=== PATIENT | female | born 1960 | race Caucasian/White ===

== ENCOUNTER 2022-02-11 06:34 | Emergency (ER) | payer BC, SELFPAY ==
--- NOTE | ~2022-02-11 | XR_ITS ---
EXAMINATION: XR lumbar spine 2-3V DATE: 02/11/2022 09:17 INDICATION: Low back pain TECHNIQUE: Anteroposterior and lateral views of the lumbar spine, and cone-down lateral view of the l umbosacral junction were obtained. COMPARISON: None. FINDINGS: There is an age-indeterminate compression fracture of L1 with 20% loss of anterior vertebra l body height. The vertebral body heights are otherwise maintained. There are 3 mm of retrolisthesis of L5 on S1. There is mild loss of intervertebral disc space height at L1-2. There is mild facet join t osteoarthritis in the lower lumbar spine. Surgical clips in the right upper quadrant are likely fro m prior cholecystectomy. Calcified atherosclerosis is noted. IMPRESSION: 1. Age-indeterminate L1 compression fracture with 20% loss of anterior vertebral body height. Reviewed, dictated and finalized at location A. IMPRESSION: 1. Age-indeterminate L1 compression fracture with 20% loss of anterior vertebra l body height.
--- NOTE | ~2022-02-11 | CT_ITS ---
EXAMINATION: CT lumbar spine wo con DATE: 02/11/2022 10:05 INDICATION: L1 compression fracture. TECHNIQUE: Computed tomography (CT) of the lumbar spine was performed without intravenous contrast. A utomated exposure control and iterative reconstruction technique were employed. The dose-length produ ct was 1152.12 mGy-cm. COMPARISON: Lumbar spine radiographs 02/11/2022 FINDINGS: Bone alignment is normal. There is a compression fracture of T12 with 1/5 loss of height. T here is a compression fracture of L1 with 3/5 loss of height centrally and sclerosis of the vertebral body. There is a compression fracture of inferior endplate of L2 with 1/5 loss of height. There is a compression fracture of superior endplate of L5 with 1/5 loss of height. There is a fracture of S1 s uperior endplate with low signal fracture line and sclerosis without height loss. There is mildly dec reased disc height at L1-L2. The following disc levels are specifically discussed: L1-L2: The disc is bulging. There is mild bilateral facet joint osteoarthritis. There is mild bilater al neural foraminal stenosis. There is mild central canal stenosis. L2-L3: The disc does not extend beyond the endplate margin. There is moderate bilateral facet joint o steoarthritis. There is no neural foraminal stenosis. There is no central canal stenosis. L3-L4: The disc is bulging. There is moderate bilateral facet joint osteoarthritis. There is mild angelia ateral neural foraminal stenosis. There is mild central canal stenosis. L4-L5: The disc is bulging. There is severe right and moderate left facet joint osteoarthritis. There is mild bilateral neural foraminal stenosis. There is mild central canal stenosis. L5-S1: The disc does not extend beyond the endplate margin. There is moderate bilateral facet joint o steoarthritis. There is no neural foraminal stenosis. There is no central canal stenosis. IMPRESSION: 1. T12, L1, and S1 compression fractures, likely subacute. 2. Age indeterminant L2 and L5 compression fractures. 3. Mild lumbar spondylosis. Reviewed, dictated and finalized at location B.
--- NOTE | ~2022-02-11 | XR_ITS ---
EXAMINATION: XR thoracic spine 3V DATE: 02/11/2022 09:17 INDICATION: Thoracic back pain TECHNIQUE: AP, lateral and lateral swimmer's views of the thoracic spine were obtained. COMPARISON: None. FINDINGS: Bone alignment is normal. There is no fracture. The thoracic vertebral bodies are maintaine d. There is moderate loss of intervertebral disc space height at multiple levels in the thoracic spin e. Small degenerative osteophytes project from the anterior endplates of multiple vertebral bodies. A n age-indeterminate L1 compression fracture is noted. IMPRESSION: 1. Moderate thoracic spondylosis without acute findings of the thoracic spine. 2. Age-indeterminate L1 compression fracture. Reviewed, dictated and finalized at location A.
[2022-02-11 06:42] VITALS: BP 181/78; PULSE 65; RESP 18; TEMP 36.9; O2SAT 99
--- NOTE | 2022-02-11 07:35 | ED.BACK ---
HPI - Back Pain/Injury General Chief Complaint: Back Pain/Injury Stated Complaint: back pain x 1 month Time Seen by Provider: 02/11/22 07:33 Source: patient and family Limitations: no limitations History of Present Illness HPI Narrative: 61 years old white female presents with mid line lumbar back pain started 1 month ago. Patient moved from [place] to [place] recently with a lot of lifting and moving furniture at that time subsequently patient started having that pain. Was seen by her family physician in [place] and started on prednisone and muscle relaxant no improvement, then was seen by her family physician in [place] which started her on muscle relaxant and prednisone again, last prednisone was yesterday, yesterday patient had the first physical therapy which did not tolerate. Patient denies any fever, chills, nausea, vomiting, abdominal pain, chest pain, shortness of breath, radiation of pain, focal neurodeficit . patient denies bowel dysfunction, bladder dysfunction, altered sensation, focal weakness, or saddle numbness, Related Data Allergies Allergy/AdvReac Type Severity Reaction Status Date / Time No Known Allergies Allergy Verified 02/11/22 08:57 Review of Systems Review of Systems: All systems reviewed & are unremarkable except as noted in HPI and below Exam Narrative: General appearance: Well-developed, well-nourished Skin: Normal color Head: Normocephalic, nontraumatic Eyes: Clear conjunctiva ENT: Oropharynx normal, ears normal, nose normal Neck: Supple, nontender Chest and respiratory: Airway patent, no respiratory distress, no accessory muscle use Heart: Regular rate/rhythm Abdomen: Soft, nontender, no organomegaly, quiet bowel sounds Vascular: Normal peripheral pulses, normal capillary refill. Musculoskeletal: Limited range of motion at the lumbar area, no bruises, no swelling, no rash, no localized tenderness Neurologic: Alert and oriented ?3, RIGGING HELPER is normal as tested, no gross motor deficit Course Consultations Consultation #1: Onelia, kyphoplasty at [phone] Outpatient follow-up, phone number is [phone] extension 2008 Date: 02/11/22 Time: 09:55 Vital Signs Vital signs: Vital Signs Temperature 36.9 C 02/11/22 06:42 Pulse Rate 65 02/11/22 06:42 Respiratory Rate 18 02/11/22 06:42 Blood Pressure 181/78 H 02/11/22 06:42 Pulse Oximetry 99 02/11/22 06:42 Oxygen Delivery Room Air 02/11/22 06:42 Temperature 36.9 C 02/11/22 06:42 Pulse Rate 65 02/11/22 06:42 Respiratory Rate 18 02/11/22 06:42 Blood Pressure 181/78 H 02/11/22 06:42 Pulse Oximetry 99 02/11/22 06:42 Oxygen Delivery Room Air 02/11/22 06:42 MDM - Back Pain/Injury Differential Diagnosis Differential diagnosis: Likely strain of lumbar region and discitis Lab Data Result diagrams: 02/11/22 08:21 02/11/22 08:21 Labs: Lab Results 02/11/22 02/11/22 02/11/22 Range/Units 08:21 08:21 08:21 WBC 11.0 H (4.5-10.0) K/mm3 RBC 4.60 (4.2-5.4) M/mm3 Hgb 15.6 H (12.0-15.0) g/dL Hct 45.8 (37.0-47.0) % MCV 99.6 (80-100) fl MCH 33.9 (26-34) pg MCHC 34.1 (32-36) g/dl RDW 12.6 (11.5-14.5) % Plt Count 244 (150-375) k/mm3 MPV 9.3 (7.4-10.4) fl Immature Gran % (Auto) 1.3 H (0-0.5) % Neut % (Auto) 52.4 (45.5-73.1) % Lymph % (Auto) 38.9 (18.3-44.2) % [place] % (Auto) 5.4 (2.6-8.5) % Eos % (Auto) 1.3 (0-4.4) % Baso % (Auto) 0.7 (0.2-1.2) % Lymph # (Auto) 4.28 H (0.9-3.2) K/mm3 [place] # (Auto) 0.6 (0.1-0.6) K/mm3 Eos # (Auto) 0.1 (0-0.3) K/mm3 Baso # (Auto) 0.1 (0.0-0.1) K/mm3 Abs Immat Gran (auto)
[2022-02-11 08:30] LABS: Basophils Absolute Auto 0.1 K/mm3 (0.0-0.1); Basophils Percent Auto 0.7 % (0.2-1.2); Eosinophils Absolute Auto 0.1 K/mm3 (0-0.3); Eosinophils Percent Auto 1.3 % (0-4.4); Hematocrit 45.8 % (37.0-47.0); Hemoglobin 15.6 g/dL (12.0-15.0); Immature Granulocyte Absolute 0.14 K/mm3 (0.00-0.031); Immature Granulocyte Percent A 1.3 % (0-0.5); Lymphocytes Absolute Auto 4.28 K/mm3 (0.9-3.2); Lymphocytes Percent Auto 38.9 % (18.3-44.2); Mean Corpuscular HGB Conc 34.1 g/dl (32-36); Mean Corpuscular Hemoglobin 33.9 pg (26-34); Mean Corpuscular Volume 99.6 fl (80-100); Mean Platelet Volume 9.3 fl (7.4-10.4); Monocytes Absolute Auto 0.6 K/mm3 (0.1-0.6); Monocytes Percent Auto 5.4 % (2.6-8.5); Neutrophils Absolute Auto 5.8 K/mm3 (1.3-6.7); Neutrophils Percent Auto 52.4 % (45.5-73.1); Platelet Count Result 244 k/mm3 (150-375); Red Cell Distribution Width 12.6 % (11.5-14.5)
--- NOTE | 2022-02-11 08:34 | PC.NURSE ---
THis nurse introduced self at start of shift and gave pt call light. Once orders were put in [facility] technical lead senior developer Mell asked this nurse to draw blood for her. I went in to check if pt had IV. stated they havent done nothing yet ! Told pt that we were starting PT stated im a hard stick and by veins roll sometime. Pt was stuck in LT AC and was unable to advance. Pt was stuck in left hand and blood was drawn but hub was not fully attached so blood dripped onto patient hand. Was able to obtain two vials of blood and vein blew and caused swelling on hand. THis nurse cleaned pt hand with wash cloth and dried hand as well as changed sheet. Pt stated she didnt need an IV and she is not dehydrated and doesnt want an iv. holding yellow review sheet in hand in hand. Informed EDMD that pt didnt want iv wants oral medication. visibly annoyed. just came to nurse station and asked if i was going to give her the shot .
[2022-02-11 08:40] LABS: Alanine Aminotransferase 36 U/L (6-35); Albumin Level 4.6 g/dL (3.5-5.1); Alkaline Phosphatase 122 U/L (38-126); Anion Gap 7 mmol/L (8-16); Aspartate Amino Transferase 33 U/L (14-36); Bilirubin,Total 0.6 mg/dL (0.2-1.3); Blood Urea Nitrogen 20 mg/dL (7-17); Calcium 9.5 mg/dL (8.4-10.2); Carbon Dioxide 26 mmol/L (22-30); Chloride 105 mmol/L (98-107); Estimated CRCL calculation 70 ml/min; Estimated Glomerular Filt Rate > 60; Glucose 80 mg/dL (65-110); Potassium 3.8 mmol/L (3.4-5.0); Sodium 138 mmol/L (137-145)
[2022-02-11 08:54] LABS: Add Urine Microscopic? YES; Appearance Urine Cloudy (Clear); Bilirubin Urine Negative (Negative); Blood Urine Negative (Negative); Color Urine Yellow (Yellow); Glucose Urine UA Negative (Negative); Ketones Urine Negative (Negative); Leukocyte Esterase Ur Negative LEU/UL (Negative); Mucus Urine Rare /lpf; Nitrate Urine Negative (Negative); Protein Urine Negative (Negative); RBC Urine 0-2 /hpf (0-2); Specific Grav Ur 1.012 (1.001-1.035); Squamous Epithelial Cell Urine Many /hpf (Few); Urobilinogen Urine Negative mg/dL (<2.0)
[2022-02-11] MEDS: HYDROmorphone HCL INJ (*CRX) 1 MG/ML SYR IM (08:59)
[2022-02-11] MEDS: KETOROLAC (*BKC) 60 MG/2 ML VIAL IM (08:59)
[2022-02-11] MEDS: ONDANSETRON HCL ODT 4 MG TABLET PO (08:59)
[2022-02-11 09:18] LABS: Erythrocyte Sedimentation Rate 36 mm/hr (0-20)
== END 2022-02-11 11:10 | disposition home or self-care (01) ==
PROVIDERS: Emergency Provider Emergency Medicine; PCP Registered Nurse
DX: S32.010A Wedge compression fracture of first lumbar vertebra, initial encounter for closed fracture (principal); X58.XXXA Exposure to other specified factors, initial encounter
CPT/HCPCS: 36415; 72072; 72100; 72131; 80053; 81001; 85025; 85652; 96372; 99284; A9270; J1170; J1885

== ENCOUNTER 2022-02-13 13:27 | Outpatient (CLI) | payer BC, SELFPAY ==
--- NOTE | ~2022-02-13 | MR_ITS ---
EXAMINATION: MR thoracic spine wo con DATE: 02/13/2022 14:11 INDICATION: Thoracic vertebral fracture. TECHNIQUE: Magnetic resonance imaging (MRI) of the thoracic spine was performed without intravenous c ontrast. COMPARISON: Thoracic spine radiographs 02/11/2022 FINDINGS: Bone alignment is normal. There is mild chronic height loss of T4, T6, and T10 vertebral bora dies. There is a burst fracture of superior endplate of T11 with 1/5 loss of height and edema-like ma rrow signal intensity. There is a burst fracture of superior endplate of T12 with 1/5 loss of height and edema-like marrow signal intensity. There is a compression fracture of L1 with 3/5 loss of height centrally and edema-like marrow signal intensity. There is a compression fracture of L2 with 1/5 los s of height and edema-like marrow signal intensity. From T10-T11 through L1-L2, the discs are bulging with mild central canal stenosis. There is multilevel mild facet joint osteoarthritis. On the right, there is mild neural foraminal stenosis at T6-T7, T9-T10, and T10-T11. The spinal cord signal intens ity is normal. The conus medullaris is at T12-L1. IMPRESSION: 1. Subacute burst fractures of T11 and T12 and subacute compression fractures of L1 on L2. 2. Mild thoracic spondylosis. Reviewed, dictated and finalized at location A. IMPRESSION: 1. Subacute burst fractures of T11 and T12 and subacute compression fractures o f L1 on L2. 2. Mild thoracic spondylosis.
--- NOTE | ~2022-02-13 | MR_ITS ---
EXAMINATION: MR lumbar spine wo con DATE: 02/13/2022 14:16 INDICATION: Lumbar vertebral fracture. TECHNIQUE: Magnetic resonance imaging (MRI) of the lumbar spine was performed without intravenous con trast. Sequences included sagittal T2-weighted FSE, sagittal T2-weighted FS FSE, sagittal T1-weighted FSE, and axial T2-weighted FSE. COMPARISON: CT lumbar spine 02/11/2022 FINDINGS: Bone alignment is normal. There is a compression fracture of L1 with 3/5 loss of height tammy trally and edema-like marrow signal intensity. There is a compression fracture of inferior endplate o f L2 with 1/5 loss of height and edema-like marrow signal intensity. There is a compression fracture of L4 with less than 1/5 loss of height and edema-like marrow signal intensity. There is a compressio n fracture of superior endplate of L5 with 1/5 loss of height centrally and edema-like marrow signal intensity. The intervertebral disc heights are normal. The distal spinal cord signal intensity is nor mal. The conus medullaris is at T12-L1. The following disc levels are specifically discussed: L1-L2: The disc is bulging. There is mild bilateral facet joint osteoarthritis. There is mild bilater al neural foraminal stenosis. There is mild central canal stenosis. L2-L3: The disc is bulging. There is moderate bilateral facet joint osteoarthritis. There is mild angelia ateral neural foraminal stenosis. There is mild central canal stenosis. L3-L4: The disc is mildly bulging. There is severe bilateral facet joint osteoarthritis. There is mil d bilateral neural foraminal stenosis. There is no central canal stenosis. L4-L5: The disc is bulging. There is moderate bilateral facet joint osteoarthritis. There is mild angelia ateral neural foraminal stenosis. There is mild central canal stenosis. L5-S1: The disc does not extend beyond the endplate margin. There is moderate bilateral facet joint o steoarthritis. There is no neural foraminal stenosis. There is no central canal stenosis. IMPRESSION: 1. Subacute compression fractures of L1, L2, and L5. 2. Mild lumbar spondylosis. Reviewed, dictated and finalized at location A.
== END 2022-02-13 13:28 | disposition home or self-care (01) ==
LOC: ANHIMG 13:29
PROVIDERS: PCP Registered Nurse; Visit Provider Physician Assistant
DX: S22.009A Unspecified fracture of unspecified thoracic vertebra, initial encounter for closed fracture (principal); S32.009A Unspecified fracture of unspecified lumbar vertebra, initial encounter for closed fracture; X58.XXXA Exposure to other specified factors, initial encounter; M47.896 Other spondylosis, lumbar region; M47.894 Other spondylosis, thoracic region
CPT/HCPCS: 72146; 72148

== ENCOUNTER → 2022-04-10 13:54 | Outpatient (CLI) | payer BC, SELFPAY ==
--- NOTE | ~2022-04-10 | DEXA_ITS ---
Bone Density Report Name: ADELA NUNN Age: 61 Sex: Female Ethnicity: White Date of : 1960 Indication: postmenopausal; screening for osteoporosis; prior fracture; hysterectomy; Referring Provider: Elizabeth, Siri Study: Bone densitometry was performed. Exam Date: April 10, 2022 Accession number: [id number] Bone Density: Region BMD T-score Z-score Classification Femoral Neck (Left) 0.699 -1.4 0.0 Osteopenia Total Hip (Left) 0.915 -0.2 0.8 Normal Femoral Neck (Right) 0.733 -1.0 0.3 Normal Total Hip (Right) 0.912 -0.2 0.8 Normal Total Hip Mean 0.914 -0.2 0.8 Normal World Health Organization criteria for BMD impression classify patients as: Normal (T-score at or above -1.0), Osteopenia (T-score between -1.0 and -2.5), or Osteoporosis (T-score at or below -2.5). 10-year Fracture Risk: FRAX not reported because: Prior hip or vertebral fracture Clinical Information Provided by Patient: Have had a previous hip or vertebral fracture Has had a low trauma fracture Smokes Has used the following medications: Vitamin D, Calcium Has the following medical conditions: Hysterectomy Patient maximum height was 65 Menopause Age: 45 No regular weight bearing exercise Does not regularly consume dairy products Drinks caffeinated beverages Onset of menses at age 16 Number of children 2 Impression: The patient has low bone mass, based on the Left Femoral Neck T-score. The patient has risk factors, including: smoking, previous fracture. Discussion: INCREASED RISK OF FRACTURE DUE TO HISTORY OF FRACTURE. The patient's previous fracture puts the patient at high risk of a future fracture. In untreated patients, the risk of osteoporotic fracture increases approximately two-fold for each 1.0 SD decrease in T-score. Low bone density is not the only risk factor for fracture; also consider factors such as patient's age, frailty or poor health, risk of falling, risk of injury, previous osteoporotic fracture, family history of osteoporosis, cigarette smoking, low body weight, etc. Not everyone with a low trauma fracture has osteoporosis; osteomalacia and other metabolic bone disorders should also be considered. Patients who have osteoporosis should be evaluated for specific diseases and conditions (secondary causes) that may cause or contribute to bone loss and fracture risk. National Osteoporosis Foundation (NOF) recommends pharmacologic intervention for patients with a prior hip or vertebral fracture regardless of BMD T-score. The patient should follow a healthful lifestyle (good nutrition with adequate calcium and vitamin D, and appropriate weight-bearing exercise). Follow-Up: Consider a repeat BMD and Vertebral Fracture Assessment (VFA) exam in 2 years or sooner if medically necessary, to reassess this patient's status. Reported by: BUTCH
== END ==
PROVIDERS: PCP Registered Nurse; Visit Provider Registered Nurse
DX: S22.080D Wedge compression fracture of T11-T12 vertebra, subsequent encounter for fracture with routine healing (principal); Z78.0 Asymptomatic menopausal state; X58.XXXD Exposure to other specified factors, subsequent encounter; M85.88 Other specified disorders of bone density and structure, other site
CPT/HCPCS: 77080

== ENCOUNTER 2022-08-12 15:37 | Outpatient (CLI) | payer BC, SELFPAY ==
--- NOTE | 2022-08-12 15:48 | ECG_ITS ---
Measurements Intervals [place] Rate: 66 P: 51 [place]: 203 QRS: -19 QRSD: 101 T: 36 QT: 413 QTc: 436 Interpretive Statements SINUS RHYTHM NO PREVIOUS ECG AVAILABLE FOR COMPARISON Electronically Signed On 08-12-2022 18:08:13 CDT by Pat Benoit M.D.
== END 2022-08-12 15:38 | disposition home or self-care (01) ==
LOC: ANHCARD 15:39
PROVIDERS: PCP Registered Nurse; Visit Provider Podiatrist Foot & Ankle Surgery
DX: R03.0 Elevated blood-pressure reading, without diagnosis of hypertension (principal)
CPT/HCPCS: 93005

== ENCOUNTER → 2023-03-16 14:48 | Outpatient (CLI) | payer BC, SELFPAY ==
--- NOTE | ~2023-03-16 | CT_ITS ---
EXAMINATION: CT thoracic spine wo con DATE: 03/16/2023 15:10 INDICATION: Pain in thoracic and lumbar spine. TECHNIQUE: Computed tomography (CT) of the thoracic spine was performed without intravenous contrast. Automated exposure control and iterative reconstruction technique were employed. The dose-length pro duct was 791.80 mGy-cm. COMPARISON: Thoracic spine MRI 02/13/2022 FINDINGS: There is 4 degrees dextrocurvature of thoracic spine. There is a chronic compression fractu re of T6. There are chronic compression fractures of T11, T12, and L1 with changes of vertebroplasty. There is a compression fracture of T10 with 1/5 loss of height. There is mildly decreased disc heigh t from T4-T5 through T8-T9. There is multilevel mild facet joint osteoarthritis. On the right, there is mild neural foraminal stenosis at T9-T10. On the left, there is moderate neural foraminal stenosis at T7-T8. No central canal stenosis. There is embolized vertebroplasty material in right-sided pulmo nary arteries. IMPRESSION: 1. Compression fracture of T10 with worsening from 02/13/2022, which may be subacute or chronic. 2. Mild thoracic spondylosis. Reviewed, dictated and finalized at location E. ING INSTALLER IMPRESSION: 1. Compression fracture of T10 with worsening from 02/13/2022, which may be sub acute or chronic. 2. Mild thoracic spondylosis.
--- NOTE | ~2023-03-16 | CT_ITS ---
EXAMINATION: CT lumbar spine wo con DATE: 03/16/2023 15:10 INDICATION: Low back pain, unspecified. TECHNIQUE: Computed tomography (CT) of the lumbar spine was performed without intravenous contrast. A utomated exposure control and iterative reconstruction technique were employed. The dose-length produ ct was 859.77 mGy-cm. COMPARISON: Lumbar spine CT 02/11/2022, MRI 02/13/2022 FINDINGS: Bone alignment is normal. There are chronic compression fractures of T12, L1, L2, L4, and L 5 with changes of vertebroplasty. There is vertebroplasty material in the L1-L2 disc. There is mildly decreased disc height at L1-L2. The following disc levels are specifically discussed: L1-L2: The disc is bulging. There is moderate bilateral facet joint osteoarthritis. There is mild angelia ateral neural foraminal stenosis. There is mild central canal stenosis. L2-L3: There is a right foraminal protrusion. There is moderate bilateral facet joint osteoarthritis. There is mild right neural foraminal stenosis. There is no central canal stenosis. L3-L4: The disc is bulging. There is severe bilateral facet joint osteoarthritis. There is mild bilat eral neural foraminal stenosis. There is no central canal stenosis. L4-L5: The disc does not extend beyond the endplate margin. There is severe bilateral facet joint ost eoarthritis. There is no neural foraminal stenosis. There is no central canal stenosis. L5-S1: There is a right foraminal protrusion. There is severe bilateral facet joint osteoarthritis. T here is mild right neural foraminal stenosis. There is no central canal stenosis. IMPRESSION: 1. Mild lumbar spondylosis. Reviewed, dictated and finalized at location E. INE BURRER IMPRESSION: 1. Mild lumbar spondylosis.
== END ==
PROVIDERS: PCP Registered Nurse
DX: M47.894 Other spondylosis, thoracic region (principal); S22.070D Wedge compression fracture of T9-T10 vertebra, subsequent encounter for fracture with routine healing; X58.XXXD Exposure to other specified factors, subsequent encounter; M47.896 Other spondylosis, lumbar region
CPT/HCPCS: 72128; 72131